=== PATIENT | female | born 1970 | race Caucasian/White ===

== ENCOUNTER → 2020-04-04 13:28 | Outpatient (BNVA) | payer OTHER, SELFPAY | PROVIDERS: Visit Provider Nurse Practitioner Family | DX: Z11.59 Encounter for screening for other viral diseases (principal) | CPT/HCPCS: 87635 ==

== ENCOUNTER → 2022-03-18 10:29 | Outpatient (BNVA) | payer OTHER, SELFPAY | PROVIDERS: PCP Nurse Practitioner Family; Visit Provider Nurse Practitioner | DX: Z13.6 Encounter for screening for cardiovascular disorders (principal) | CPT/HCPCS: 80053; 80061; 84443 ==

== ENCOUNTER 2022-05-07 11:33 | Emergency (ER) | payer OTHER, SELFPAY ==
[2022-05-07 11:40] VITALS: BP 125/74; PULSE 78; RESP 16; TEMP 36.7; O2SAT 98; BMI 26.7
--- NOTE | 2022-05-07 11:55 | XRR_ITS ---
PROCEDURE INFORMATION: Exam: XR Right Ankle Exam date and time: 05/07/2022 12:22 PM Age: 51 years old Clinical indication: Injury or trauma; Fall; Blunt trauma; Injury date: 05/06; Injury details: Right ankle pain. Injury occurred last night. She fell and twisted her right ankle. She is continued to have swelling and right ankle along with pain. TECHNIQUE: Imaging protocol: Radiologic exam of the Right ankle. Views: 3 or more views. COMPARISON: No relevant prior studies available. FINDINGS: Bones/joints: obliquely oriented fracture involving the distal fibular metadiaphysis extending caudally to the level of the tibial plafond. Minimally displaced. Soft tissue swelling. Ankle mortise is symmetrical. Medial malleolus normal. Subtalar joint and the tibiotalar joint appears normal. Soft tissues: See Bones/joints finding. XR/XR ankle RT min 3V* [id number] IMPRESSION: Obliquely oriented fracture distal aspect of the fibula extending to the level of the tibial plafond
--- NOTE | 2022-05-07 12:10 | W.ED.EXTPRO ---
Documented by User: RAD Valderrama 05/08/22 09:19 HPI - Extremity Problem General: Chief complaint: Extremity Injury, Lower Stated complaint: right ankle pain Time Seen by Provider: 05/07/22 12:03 History of Present Illness: Patient is a 51-year-old female comes to the ED with right ankle pain. Injury occurred last night. She fell and twisted her right ankle. She is continued to have swelling and right ankle along with pain. She has been icing right ankle and has taken tramadol for pain. Associated symptoms: Deny chest pain, fever(s) or rash Review of Systems Const: Denies: fever(s), chills or fatigue Eyes: Denies: change in vision or eye discomfort ENMT: Denies: throat pain, odynophagia, nasal discharge or nasal congestion Card: Denies: chest pain, palpitations, edema, swelling of feet/ankles, dyspnea on exertion or orthopnea Resp: Denies: dyspnea, productive cough or non-productive cough GI: Denies: abdominal pain, nausea, vomiting, diarrhea, constipation or hematochezia : Denies: flank pain, dysuria or hematuria Musc: Reports: extremity pain (Right ankle) and extremity swelling (Right ankle); Denies: neck pain or back pain Skin/Breast: Denies: rash or new lesions Neuro: Denies: headache(s), numbness in extremities or weakness in extremities PFSH ED PFSH: Medical History Adult onset hypothyroidism Smoker Surgical History History of cervical biopsy Had 2 times 1997 History of tubal ligation Family History Daughter Diabetes Mother Hypertension Other Cancer Denies family history of CAD (coronary artery disease) Dementia Chronic kidney disease (CKD) Stroke Social History Smoking and tobacco status: current every day smoker Second hand smoke exposure: No Smoking risk assessment/counseling performed?: Yes Alcohol intake: never Desire information about alcohol rehabilitation?: No Counseling given: No Desire information about substance/drug rehabilitation?: No Counseling given: No Adopted: No Caregiver/support person: No Lives independently: Yes Household members: spouse Housing: House Marital status: Number of children: 3 Highest education level completed: High School Graduate service: No Current occupational status: employed History of recent travel: No Physical Exam Const: COMMON NORMALS: no acute distress, patient oriented x3 and alert HENMT: COMMON NORMALS: normocephalic HEAD & SCALP: normocephalic MOUTH: Normal oral and palatal mucosa present THROAT: posterior oropharynx normal and uvula midline Neck/C-Spine: COMMON NORMALS: supple GENERAL: Yes normal visual inspection Resp: COMMON NORMALS: normal respiratory effort, No retractions, No use of accessory muscles and clear to auscultation bilaterally AUSCULTATION: clear to auscultation bilaterally Cardio: COMMON NORMALS: regular rate, regular rhythm, S1 normal heart sound present, S2 normal heart sound present, No gallops present (Cardio), No clicks present (Cardio), No murmurs present (Cardio) and Peripheral pulses 2+ throughout RATE: regular rate RHYTHM: regular rhythm HEART SOUNDS: S1 normal heart sound present and S2 normal heart sound present PERIPHERAL PULSES: Peripheral pulses 2+ throughout GI: COMMON NORMALS: Normal to inspection, nondistended, normoactive bowel sounds present, Soft to palpation, non-tender and no masses PALPATION: Yes Soft to palpation : COMMON NORMALS: Yes no CVA tenderness BLADDER/KIDNEY EXAM: Yes no CVA tenderness Back/Pelvis: COMMON NORMALS: no CVA tenderness Extremity: NARRATIVE EXTREMITY EXAM: Right ankle no visible deformity noted. Significant swelling and ecchymosis around lateral malleolus. Neurovascular exam intact. Limited range of motion due to pain. GENERAL: Yes normal exam except as noted Neuro: COMMON NORMALS: patient oriented x3 SENSORIUM/ORIENTATION: Yes alert GAIT: Yes Normal gait present Course Vital Signs: Vital signs: Vital Signs Temperature 98.0 F 05/07/22 11:40 Pulse Rate 78 05/07/22 11:40 Respiratory Rate 16 05/07/22 11:40 Blood Pressure 125/74 05/07/22 11:40 Pulse Oximetry 98 05/07/22 11:40 Oxygen Delivery Me thod 05/07/22 11:40 MDM - Extremity (Nontraumatic) Medical Decision Making Patient is a 51-year-old female comes to the ED with right ankle pain. Injury occurred last night. She fell and twisted her right ankle. She has continued to have swelling and right ankle along with pain.Right ankle no visible deformity noted. Significant swelling and ecchymosis around lateral malleolus. Neurovascular exam intact. Limited range of motion due to pain. Vitals are stable. X-ray of right ankle showed obliquely oriented fracture of distal aspect of the fibula. I placed an order with case management for patient to be referred to Ortho for follow-up of ankle fracture. She was put in a posterior leg with stirrup splint and discharged home with crutches. Sent with a prescription for 8 tabs of hydrocodone. Patient understood and agreed with plan. Lab Data Radiology Impressions Ankle X-Ray 05/07/22 11:55 IMPRESSION: Obliquely oriented fracture distal aspect of the fibula extending to the level of the tibial plafond Discharge Plan Discharge Patient Disposition: Home Clinical Impression: Ankle fracture Qualifiers: Encounter type: initial encounter Fracture type: closed Laterality: right Qualified Code(s): S82.891A - Other fracture of right lower leg, initial encounter for closed fracture Condition: Stable Prescriptions: No Action levothyroxine 50 mcg capsule 50 mcg PO DAILY tramadol 50 mg tablet 50 mg PO Q8H PRN tizanidine 4 mg tablet 4 mg PO BID PRN fluticasone propionate [Flonase Allergy Relief] 50 mcg/actuation spray,suspension 2 spray INTRANASAL DAILY Rx Instructions: administer into each nostril bupropion HCl 75 mg tablet 75 mg PO BID Qty: 60 1RF Rx Instructions: 8-12 hours apart Discharge Orders: Discharge ED (Routine); Ordered 05/07/22 Ordered By: Stepan Aj Referrals: Janis Condon APN [Primary Care Provider] - Discharge Diet: Regular Discharge Activity: Limit activity as instructed and Use walker/crutches as instructed Patient Instructions: Ankle Fracture (ED), Opioid Safety Activity Restrictions/Additional Instructions: Follow-up with medical provider as directed. Case management should be contacting you in the next several days to set up an appoint with orthopedics for follow-up and further management of ankle fracture. Keep splint on and dry, use crutches to ambulate and no weightbearing until cleared by Ortho. Take medications as prescribed. Return to the ER or your medical provider if condition worsens. Please read and understand discharge instructions. Thank you for choosing [facility] for your healthcare needs today. Please realize this is an emergency room and that we are providing you with a medical screening exam and this may not be complete and all inclusive of all the testing and or work up that you may need to determine your ailment or severity of your illness. It is very important that you follow up as instructed or that you return to the Emergency Department should you have concerns or if your condition changes or worsens in any way. Coding Level of Care Code ED Letter Carrier for Chg Fwd Exam Comprehensive Documented by User: Vicente Pradhan DO 05/08/22 10:47 HPI - Extremity Problem General: Chief complaint: Extremity Injury, Lower Stated complaint: right ankle pain Time Seen by Provider: 05/07/22 12:03 [facility] ED PFSH: Medical History Adult onset hypothyroidism Smoker Surgical History History of cervical biopsy Had 2 times 1997 History of tubal ligation Family History Daughter Diabetes Mother Hypertension Other Cancer Denies family history of CAD (coronary artery disease) Dementia Chronic kidney disease (CKD) Stroke Social History Smoking and tobacco status: current every day smoker Second hand smoke exposure: No Smoking risk assessment/counseling performed?: Yes Alcohol intake: never Desire information about alcohol rehabilitation?: No Counseling given: No Desire information about substance/drug rehabilitation?: No Counseling given: No Adopted: No Caregiver/support person: No Lives independently: Yes Household members: spouse Housing: House Marital status: Number of children: 3 Highest education level completed: High School Graduate service: No Current occupational status: employed History of recent travel: No Course Vital Signs: Vital signs: Vital Signs Temperature 98.0 F 05/07/22 11:40 Pulse Rate 78 05/07/22 11:40 Respiratory Rate 16 05/07/22 11:40 Blood Pressure 125/74 05/07/22 11:40 Pulse Oximetry 98 05/07/22 11:40 Oxygen Delivery Me thod 05/07/22 11:40 MDM - Extremity (Nontraumatic) Medical Decision Making Patient is a 51-year-old female comes to the ED with right ankle pain. Injury occurred last night. She fell and twisted her right ankle. She has continued to have swelling and right ankle along with pain.Right ankle no visible deformity noted. Significant swelling and ecchymosis around lateral malleolus. Neurovascular exam intact. Limited range of motion due to pain. Vitals are stable. X-ray of right ankle showed obliquely oriented fracture of distal aspect of the fibula. I placed an order with case management for patient to be referred to Ortho for follow-up of ankle fracture. She was put in a posterior leg with stirrup splint and discharged home with crutches. Sent with a prescription for 8 tabs of hydrocodone. Patient understood and agrees to plan. Chart reviewed and patient discussed with midlevel. Agree with assessment and plan. Lab Data Radiology Impressions Ankle X-Ray 05/07/22 11:55 IMPRESSION: Obliquely oriented fracture distal aspect of the fibula extending to the level of the tibial plafond Discharge Plan Discharge Patient Disposition: Home Clinical Impression: Ankle fracture Qualifiers: Encounter type: initial encounter Fracture type: closed Laterality: right Qualified Code(s): S82.891A - Other fracture of right lower leg, initial encounter for closed fracture Condition: Stable Prescriptions: No Action levothyroxine 50 mcg capsule 50 mcg PO DAILY tramadol 50 mg tablet 50 mg PO Q8H PRN tizanidine 4 mg tablet 4 mg PO BID PRN fluticasone propionate [Flonase Allergy Relief] 50 mcg/actuation spray,suspension 2 spray INTRANASAL DAILY Rx Instructions: administer into each nostril bupropion HCl 75 mg tablet 75 mg PO BID Qty: 60 1RF Rx Instructions: 8-12 hours apart Discharge Orders: Discharge ED (Routine); Ordered 05/07/22 Ordered By: Stepan Aj Referrals: Janis Condon APN [Primary Care Provider] - Discharge Diet: Regular Discharge Activity: Limit activity as instructed and Use walker/crutches as instructed Patient Instructions: Ankle Fracture (ED), Opioid Safety Activity Restrictions/Additional Instructions: Follow-up with medical provider as directed. Case management should be contacting you in the next several days to set up an appoint with orthopedics for follow-up and further management of ankle fracture. Keep splint on and dry, use crutches to ambulate and no weightbearing until cleared by Ortho. Take medications as prescribed. Return to the ER or your medical provider if condition worsens. Please read and understand discharge instructions. Thank you for choosing [facility] for your healthcare needs today. Please realize this is an emergency room and that we are providing you with a medical screening exam and this may not be complete and all inclusive of all the testing and or work up that you may need to determine your ailment or severity of your illness. It is very important that you follow up as instructed or that you return to the Emergency Department should you have concerns or if your condition changes or worsens in any way. Coding Level of Care Code ED Letter Carrier for [place] Fwd Exam Comprehensive
[2022-05-07] MEDS: HYDROcodone-acetaminophen 7.5-325 mg Tablet 1 TAB PO (13:30)
--- NOTE | 2022-05-07 15:15 | DCPLANNER ---
Addendum entered by Yesenia Martin 05/08/22 10:38: Patient had a follow up appointment scheduled for 05.07.[address] Vazquez at ortho - patient did attend appointment. Original Note: field insurance sales manager had message to schedule a follow up appointment for patient with ortho. field insurance sales manager sent patients information to the front office staff at ortho. Patients information will be printed and reviewed. Clinic will call patient with appointment information.
== END 2022-05-07 13:44 | disposition home or self-care (01) ==
PROVIDERS: Emergency Provider Physician Assistant; PCP Nurse Practitioner Family
DX: S82.831A Other fracture of upper and lower end of right fibula, initial encounter for closed fracture (principal); F17.210 Nicotine dependence, cigarettes, uncomplicated; X50.1XXA Overexertion from prolonged static or awkward postures, initial encounter
CPT/HCPCS: 29505; 73610; 99283; E0114

== ENCOUNTER 2022-05-10 08:01 | Day surgery (SDC) | payer OTHER, SELFPAY ==
[2022-05-10] VITALS (11 sets, daily range): BP systolic 127–168; BP diastolic 73–98; PULSE 67–82; RESP 16–18; TEMP 36.5–37; O2SAT 96–100
--- NOTE | 2022-05-10 | SCC_ITS ---
Procedure done: Open reduction internal fixation right distal fibula.? CPT code 65889 1 second of fluoroscopic guidance, for a cumulative dose of 0.04 mGy, was provided to Dr. Vazquez by the radiology department. C-arm images of the RIGHT ankle were saved for the patient's permanent record. [facility]
--- NOTE | 2022-05-10 | XR_ITS ---
WS: [id number] Exam: XR ankle RT min 3V* [id number] Date/Time of Exam: 05/10/2022 12:00 AM Reason For Exam: NIKKOKeke VILLANUEVA Comparison 05/07/2022. Intraoperative AP and lateral images of the right ankle are submitted for evaluation. There is plate and screw fixation involving a fracture of the lower fibula. Position appears to be satisfactory for healing. The ankle mortise is well-maintained. XR/XR ankle RT min 3V* [id number] IMPRESSION: 1. Satisfactory internal fixation involving a fracture of the lower fibula.
[2022-05-10] MEDS: sodium chloride 0.9% 1,000 ML 30 ML IV (08:37)
[2022-05-10] MEDS: CELEcoxib 200 mg Capsule 400 MG PO (08:37)
[2022-05-10] MEDS: gabapentin 300 mg Capsule PO (08:37)
--- NOTE | 2022-05-10 08:42 | W.PM.OPSUD ---
Surgery/Procedure H&P Update DATE OF PROCEDURE: May 10, 2022 DATE H&P PERFORMED: 05/07/22 CHANGES TO PREVIOUS DOCUMENTATION: none PREOP DIAGNOSIS: Right distal fibular fracture PLANNED PROCEDURE: Operation Date: 05/10/22 10:05 Proposed Procedures p Open reduction internal fixation right distal fibula 82177,S82.831A(Right) - Romel Vazquez DPM
[2022-05-10] MEDS: clindamycin 600 MG/50 ML PREMIX 100 MG IV (09:25)
--- NOTE | 2022-05-10 10:23 | ANES.PREANE2 ---
Pre-Anesthetic Assessment Height/Weight: Height 1.63 m Weight 70.307 kg Temp Pulse Resp BP Pulse Ox O2 Del Method O2 Flow Rate 97.7 F 73 16 154/95 100 6 05/10/22 10:15 05/10/22 10:20 05/10/22 10:20 05/10/22 10:20 05/10/22 10:20 05/10/22 10:20 05/10/22 10:20 Preop Diagnosis: Right distal fibular fracture Operation Date: 05/10/22 10:05 Proposed Procedures p Open reduction internal fixation right distal fibula 42307,S82.831A(Right) - Romel Vazquez DPM Familial anesthetic complications: none Was Beta Oh taken within 24 hours: N/A Was Clonidine taken within 24 hours: N/A Last intake: Intake Last Liquid Date 05/09/22 Last Liquid Time 23:30 Last Solid Date 05/09/22 Last Solid Time 18:30 Social Tobacco and No alcohol Exam alert, oriented x 3 and regular rate & rhythm Airway Submandibular: within normal limits Cervical ROM: within normal limits Mallampati: Class II Dentition: partials Pulmonary Chronic Obstructive Pulmonary Disease Metabolic Thyroid Disease Neuropsych Anxiety Anesthetic Plan ASA status: 2 Anesthesia: General and Regional (specify below) (right pop blk) Medications/Allergies Home Medications Medication Instructions Recorded Confirmed Last Taken Type fluticasone propionate 50 2 spray intranasal DAILY 04/04/20 05/10/22 05/09/22 History mcg/actuation nasal spray,suspension (Flonase Allergy Relief) levothyroxine 50 mcg capsule 50 mcg PO DAILY 04/04/20 05/10/22 05/10/22 05:00 History tizanidine 4 mg tablet (Zanaflex) 4 mg PO BID PRN Spasms 04/04/20 05/10/22 05/09/22 History tramadol 50 mg tablet 50 mg PO Q8H PRN Pain 04/04/20 05/10/22 05/10/22 05:00 History bupropion HCl 75 mg tablet 75 mg PO BID #60 tabs 03/19/22 05/10/22 05/09/22 Rx albuterol sulfate 90 mcg/actuation 90 mcg inhalation DAILY 05/09/22 05/10/22 05/09/22 History aerosol inhaler hydrocodone 10 mg-acetaminophen 1 tab PO Q6H PRN pain 7 days #28 05/10/22 Unknown Rx 325 mg tablet tabs Allergies Allergy/AdvReac Type Severity Reaction Status Date / Time Penicillins Allergy ALGY-Anaphy Verified 05/07/22 13:59 laxis Current Medications Generic Name Dose Route Start Last Admin Trade Name Freq PRN Reason Stop Dose Admin Sodium Chloride 1,000 mls @ 30 mls/hr 05/10/22 08:15 05/10/22 08:37 Sodium Chloride 0.9% IV 05/11/22 08:14 30 mls/hr .Q24H WAYNE Administration PFSH Anesthesia Medical History Adult onset hypothyroidism Smoker Surgical History History of cervical biopsy Had 2 times 1997 History of tubal ligation Family History Daughter Diabetes Mother Hypertension Other Cancer Denies family history of CAD (coronary artery disease) Dementia Chronic kidney disease (CKD) Stroke Social History Smoking and tobacco status: current every day smoker Second hand smoke exposure: No Smoking risk assessment/counseling performed?: Yes Alcohol intake: never Desire information about alcohol rehabilitation?: No Counseling given: No Desire information about substance/drug rehabilitation?: No Counseling given: No Adopted: No Caregiver/support person: No Lives independently: Yes Household members: spouse Housing: House Marital status: Number of children: 3 Highest education level completed: High School Graduate service: No Current occupational status: employed History of recent travel: No Data Anesthesia Cardiac Studies: No Data to Display Anesthesia Procedures Nerve Block Nerve Block 1: Main Anesthesia: general anesthesia Consent: requested by attending/covering physician, from patient, risks and benefits reviewed and patient agrees to proceed Nerve block location: popliteal (right) Anesthesia monitors applied: pulse oximetry, EKG, BP cuff and oxygen Nerve block position: semi sitting Anesthetic Used: ropivicaine 0.5% Amount of anesthesia used (mL): 30 Ultrasound used to: recognize landmarks Nerve Stimulator Used?: No Interscalene/Femoral BLK: 4 stimuplex 21 g needle used for position and inplane approach Injection: neg aspiration of heme Patient Tolerated Procedure: well Complications: none
[2022-05-10] MEDS: fentaNYL 50 mcg/mL INJ 2mL IVP (10:33)
[2022-05-10] MEDS: HYDROcodone-acetaminophen 10-325 mg Tablet 1 TAB PO (11:25)
--- NOTE | 2022-05-10 12:05 | P.OP_ITS ---
Operative Report Pre-op diagnosis: Procedure: Date of procedure: May 10, 2022 Pre-op diagnosis: Right distal fibular fracture Preop Diagnosis ? Post-op diagnosis: Right distal fibular fracture. Post-op findings: Juan Chiang B right lateral malleolus fracture Procedure done: Open reduction internal fixation right distal fibula.? CPT code 47242 Implants: [place] one third tubular plate 7 hole.? Sp 3.5 mm locking screws x7, 2-0 Vicryl, 4-0 Vicryl, skin mandi, 10 cc of Exparel, 20 cc of 0.5% Marcaine plain Specimens removed/disposition: None Pathology: None Surgeon: Romel Vazquez D.P.M. [employer]: [employer]oshi Estimated blood loss: 5 Tourniquet time: See intraoperative documentation IV fluids: None Urine output: None Complications: None Findings: Juan Chiang B fracture.? No syndesmotic disruption. Brief History: 51-year-old female fell at home sustained a right ankle fracture.? Juan Chiang B, ankle mortise is congruent, no involvement the medial or posterior ankle.? Date of injury 05/07/2022. Patient examined and evaluated, findings and treatment options were discussed with patient at length.? Reviewed x-ray findings of a spiral fracture of the distal fibula starting at the ankle mortise coursing posterior and superior with minimal displacement.? Discussed management of the fracture with surgery versus conservative care.? Patient would like to proceed with surgery with hopes that it would allow her to return to work sooner and may help negate delayed healing, malunion or nonunion.? 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 I reviewed at length with the patient, the risks, potential complications, benefits, alternatives, expectations, and typical outcomes associated with the surgery. The risks and potential complications were explained in detail, including but not limited to infection, wound dehiscence or soft tissue complications, bleeding and hematoma, chronic edema, neuritis or nerve damage producing numbness or chronic pain, CRPS, failure to relieve pain or worsening pain, thick / painful / unsightly scar, limited motion / stiffness, malposition, delayed union, malunion, or nonunion, fracture, reaction to implants, anesthetic complications, venous thromboembolism, and deformity recurrence.? I discussed the notion of no regrets with the patient as it pertains to complications and outcomes. The patient seemed to understand the nature of the proposed care and required convalescence. They asked appropriate questions, answered to their satisfaction. They are aware no guarantees can be made as to a satisfactory outcome and they understand there may be other possible unforeseen complications or outcomes not listed here that will be treated accordingly if they arise. There were no written or implied guarantees given to the patient. They gave informed consent to proceed. Procedure: Under mild sedation the patient was brought to the operating room.? She remained on the gurney in supine position.? In preop holding anesthesia administered a right popliteal block.? Timeout was performed.? Anesthesia was then administered by the anesthesia service.? Local anesthesia injected by myself consisting of 10 cc of Exparel and 20 cc of 0.5% Marcaine plain at the right lateral leg.? Well- padded pneumatic tourniquet applied to the right ankle.? The right lower extremity was then scrubbed, prepped and draped utilizing normal aseptic technique.? The right foot and ankle were exanguinated with an Esmarch bandage and the tourniquet inflated to 250 mmHg. Attention was directed to the right lateral malleolus where a linear longitudinal incision was made over the distal fibula through skin with a #15 blade.? Dissection was then carried down through subcutaneous tissue to the layer of periosteum utilizing a combination of blunt and sharp technique.? Care was taken to retract and preserve neurovascular and tendinous structures.? All bleeders were ligated and cauterized as necessary.? Linear periosteal incision was made exposing a Juan Chiang B fracture with approximately 3 mm of displacement.? This was distracted and curettaged of hematoma followed by saline flush.? The fracture was then reduced utilizing [id number] self-retaining clamps and fixated with a one third tubular plate 7 hole with locking 3.5 millimeter screws with excellent bony apposition and compression noted.? Fibula was pulled out the length and the rotated, intraoperative fluoroscopy confirmed anatomic alignment of the fibula and no hardware violating the ankle mortise.? Cotton hook test yielded negative for syndesmotic disruption.? Smooth range of motion was appreciated at the right ankle intraoperatively.? The incision was then irrigated with copious amounts of sterile skin solution and periosteum closed over hardware utilizing 2-0 Vicryl and subcutaneous tissue reapproximated utilizing 3-0 Vicryl and skin with skin mandi.? The incision was then dressed with Adaptic, sterile 4 x 4's, Kerlix and Blaise wrap.? Cam boot was then applied.? Tourniquet was then deflated and a prompt hyperemic response was noted to the distal digits of the right foot.? Patient tolerated the procedure and anesthesia well and was transferred to the PACU with vital signs stable and vascular status intact.? Following a period of postoperative monitoring she will be discharged home.? She is to remain nonweightbearing to the right lower extremity and elevate the right foot while resting.? She is to remain immobilized with a cam boot except for removal for gentle range of motion in the sagittal plane, she is to dorsiflex and plantarflex gently below threshold of pain for 15 to 20 minutes daily.? Patient discharged without home care instructions, follow-up and provided with my cell phone number to contact with any postoperative questions or concerns.?
--- NOTE | 2022-05-10 13:29 | ANE.PACU2 ---
Inpatient post-anesthesia follow up: Airway intact: Yes Vital signs: Temperature 98.2 F Pulse Rate 82 Respiratory Rate 16 Blood Pressure 156/90 Pulse Oximetry 98 Oxygen Delivery Me thod Room Air Oxygen Flow Rate 6 Fraction of Inspir ed Oxygen Hydration adequate: Yes Nausea and vomiting: No Pain level: 2 Mental status: Baseline
== END 2022-05-10 11:54 | disposition home or self-care (01) ==
PROVIDERS: PCP Nurse Practitioner Family; Visit Provider Podiatrist Foot & Ankle Surgery
PROC: (CPT 27792; principal; 2022-05-10 09:55)
DX: S82.61XA Displaced fracture of lateral malleolus of right fibula, initial encounter for closed fracture (principal); X58.XXXA Exposure to other specified factors, initial encounter; J44.9 Chronic obstructive pulmonary disease, unspecified; F41.9 Anxiety disorder, unspecified; E03.9 Hypothyroidism, unspecified; F17.210 Nicotine dependence, cigarettes, uncomplicated
CPT/HCPCS: 27792; 73610; 76000; C1713; C9290; J1100; J2250; J2405; J2704; J2795; J3010; J3490; J7030; L4361

== ENCOUNTER → 2022-05-23 15:11 | Outpatient (BNVA) | payer OTHER, SELFPAY | PROVIDERS: PCP Nurse Practitioner Family; Visit Provider Podiatrist Foot & Ankle Surgery | DX: S82.831A Other fracture of upper and lower end of right fibula, initial encounter for closed fracture (principal); Z98.890 Other specified postprocedural states; X58.XXXA Exposure to other specified factors, initial encounter | CPT/HCPCS: 73610 ==

== ENCOUNTER → 2022-06-06 14:07 | Outpatient (BNVA) | payer OTHER, SELFPAY | PROVIDERS: PCP Nurse Practitioner Family; Visit Provider Podiatrist Foot & Ankle Surgery | DX: Z98.890 Other specified postprocedural states (principal) | CPT/HCPCS: 73610 ==

== ENCOUNTER → 2022-06-27 12:50 | Outpatient (BNVA) | payer OTHER, SELFPAY | PROVIDERS: PCP Nurse Practitioner Family; Visit Provider Podiatrist Foot & Ankle Surgery | DX: Z98.890 Other specified postprocedural states (principal); S82.831A Other fracture of upper and lower end of right fibula, initial encounter for closed fracture; X58.XXXA Exposure to other specified factors, initial encounter | CPT/HCPCS: 73610 ==

== ENCOUNTER 2022-06-27 15:08 | Outpatient (CLI) | payer OTHER, SELFPAY | END 2022-06-27 15:09 | disposition home or self-care (01) | LOC: SPT 15:09 | PROVIDERS: PCP Nurse Practitioner Family; Visit Provider Podiatrist Foot & Ankle Surgery | DX: Z47.89 Encounter for other orthopedic aftercare (principal) | CPT/HCPCS: L1902 ==

== ENCOUNTER → 2022-07-18 15:23 | Outpatient (BNVA) | payer OTHER, SELFPAY | PROVIDERS: PCP Nurse Practitioner Family; Visit Provider Podiatrist Foot & Ankle Surgery | DX: Z98.890 Other specified postprocedural states (principal) | CPT/HCPCS: 73610 ==

== ENCOUNTER → 2022-11-27 10:58 | Outpatient (BNVA) | payer OTHER, SELFPAY | PROVIDERS: PCP Nurse Practitioner Family; Visit Provider Podiatrist Foot & Ankle Surgery | DX: T84.84XA Pain due to internal orthopedic prosthetic devices, implants and grafts, initial encounter (principal); Y79.2 Prosthetic and other implants, materials and accessory orthopedic devices associated with adverse incidents | CPT/HCPCS: 99213 ==

== ENCOUNTER → 2024-12-15 13:18 | Outpatient (BNVA) | payer BC, SELFPAY | PROVIDERS: PCP Nurse Practitioner Family; Visit Provider Internal Medicine | DX: E03.8 Other specified hypothyroidism (principal) | CPT/HCPCS: 84439; 84443 ==

== ENCOUNTER → 2025-03-23 11:24 | Outpatient (BNVA) | payer BC, SELFPAY | PROVIDERS: PCP Nurse Practitioner Family; Referring Provider Nurse Practitioner Family; Visit Provider Nurse Practitioner Women's Health | DX: Z12.4 Encounter for screening for malignant neoplasm of cervix (principal) | CPT/HCPCS: 80053; 82306; 82465; 83036; 83718; 83721; 84439; 84443; 84481; 85025; 87624 ==